=== PATIENT | female | born 1940 | race Caucasian/White ===

== ENCOUNTER 2017-02-28 08:23 | Day surgery (SDC) | payer BC ==
--- NOTE | 2017-02-20 12:06 | HP ---
Admitting History and Physical - Primary Care Physician PCP: Cuate Loza - Admission Chief Complaint: right breast cancer History of Present Illness: 76 yo female was noted to have a right breast mass at the right 9 oclock position on mammo and US. 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 Patient underwent an MRI which was c/w known cancer as well as an additional lesion .7 cm at 9 oclock. Focused US of this lesion was c/w a cyst. Patient is to undergo a right breast WE, snbx, lymphos and NL. History Source: Patient Limitations to Obtaining History: No Limitations - Past Medical History Cardiovascular: Yes: Hyperlipdemia Psych: Yes: Depression Endocrine: Yes: Hypothyroidism - Past Surgical History Past Surgical History: Yes: Appendectomy (at 29 yrs old), Cholecystectomy (at 29 yrs old) Additional Past Surgical History: Evacuation of subdural hematoma (2007) Home Medications - Allergies Allergies/Adverse Reactions: Allergies Allergy/AdvReac Type Severity Reaction Status Date / Time No Known Allergies Allergy Verified 02/20/17 12:10 - Home Medications Home Medications (free text): synthroid. lipitor. lexapro Family Disease History - Family Disease History Family Disease History: CA: Grandparent (maternal GF-prostate cancer), Mother ( breast and gastric cancer), Brother (prostate cancer) Review of Systems - Review of Systems Constitutional: reports: No Symptoms Cardiovascular: reports: No Symptoms Respiratory: reports: No Symptoms Physical Examination Constitutional: Yes: Well Nourished, Calm Breast(s): Yes: Other (Ptotic B-cup breasts with mild bruising noted at the right breast US core site. No suspiicious masses or adenopathy noted bilaterally. Mild thickening at bx site.) Problem List - Problems (1) Breast cancer, right Code(s): C50.911 - MALIGNANT NEOPLASM OF UNSP SITE OF RIGHT FEMALE BREAST Qualifiers: Breast location: overlapping sites of breast Patient sex: female Assessment/Plan Plan Right breast WE with NL, snbx, lympho possible andx
[2017-02-24 13:45] VITALS: BMI 27.0
[2017-02-28] MEDS ORDERED: LIDOCAINE HCL 1%, 10 MG/ML (20ML VIAL) ONE ×2 (12:52→14:42)
[2017-02-28] MEDS ORDERED: ISOSULFAN BLUE 10 MG/ML VIAL SQ ONE (12:52)
[2017-02-28] MEDS ORDERED: MIDAZOLAM HCL 2 MG/2 ML SINGLE DOSE VIAL ONE ×2 (13:26→14:00)
[2017-02-28] MEDS ORDERED: PROPOFOL 20 ML ONE (13:59)
[2017-02-28] MEDS ORDERED: PHENYLEPHRINE HCL 10 MG/1 ML SINGLE DOSE VIAL ONE (14:05)
[2017-02-28] MEDS ORDERED: ESMOLOL HCL 10 ML ONE (14:06)
[2017-02-28] MEDS ORDERED: LIDOCAINE HCL/PF 2% SDV 5ML VIAL ONE (14:06)
[2017-02-28] MEDS ORDERED: ceFAZolin SODIUM 1 GM VIAL ONE (14:08)
[2017-02-28] MEDS ORDERED: METOPROLOL TARTRATE 5 MG/5 ML VIAL ONE (14:12)
[2017-02-28] MEDS ORDERED: LIDOCAINE HCL 1%, 10 MG/ML (20ML VIAL) IJ ONE (14:36)
[2017-02-28] MEDS ORDERED: LIDOCAINE HCL 1%, 10 MG/ML (20ML VIAL) INF ONE (14:36)
[2017-02-28] MEDS ORDERED: DEXAMETHASONE SOD PHOSPHATE 4 MG/1 ML VIAL ONE (15:19)
[2017-02-28] MEDS ORDERED: KETOROLAC TROMETHAMINE 30 MG/1 ML VIAL ONE (15:19)
[2017-02-28] MEDS ORDERED: ONDANSETRON 4 MG/2 ML VIAL ONE (15:19)
[2017-02-28] MEDS ORDERED: ONDANSETRON 4 MG/2 ML VIAL IVPB PRN (15:30)
[2017-02-28] MEDS ORDERED: DEXTROSE 5%-0.45% SALINE 1,000 ML IV SCH (15:30)
[2017-02-28] MEDS ORDERED: KETOROLAC TROMETHAMINE 30 MG/1 ML VIAL IVPUSH PRN (15:30)
[2017-02-28] MEDS ORDERED: ONDANSETRON 4 MG/2 ML VIAL IVPUSH PRN (15:33)
[2017-02-28] MEDS ORDERED: oxyCODONE HCL 5 MG TABLET PO PRN (15:33)
[2017-02-28] MEDS ORDERED: LACTATED RINGERS SOLUTION 1,000 ML IV SCH (15:45)
--- NOTE | 2017-02-28 16:20 | OP ---
DATE OF OPERATION: 02/28/2017 PREOPERATIVE DIAGNOSIS: Right breast cancer, overlapping regions. POSTOPERATIVE DIAGNOSIS: Right breast cancer, overlapping regions. PROCEDURE: A right breast partial mastectomy with right axillary sentinel lymph node biopsy with partial tissue transfer closure 4 x 3 cm. PRIMARY SURGEON: Aziza Loza MD VERIFICATION LEAD: USHA Camarena ANESTHESIA: General anesthesia with local anesthesia. COMPLICATIONS: None. Briefly, the patient is a 76-year-old, G4, P3, postmenopausal white female of [place] descent with a family history with mother who has bilateral breast cancer in her 70s as well as gastric cancer. The patient was found to have a right breast lateral density seen on mammography from December 2016. An ultrasound confirmed an 8-mm density in the right breast 9 o'clock region. Ultrasound core biopsy performed on January 18, 2017, showed a poorly-differentiated invasive duct cancer which was ER/ID positive, HER2/jacquie negative by FISH. MRI did show a separate density in the right breast 9 o'clock region, but this turned out to be a cyst on ultrasound. She was advised of undergoing a right breast partial mastectomy with sentinel lymph node biopsy. The patient was brought in for the procedure on February 28, 2017, and underwent the needle localization and lymphoscintigraphy at [facility] and then was brought to the [facility]. In the holding area, site verification was made, and informed consent was obtained. DESCRIPTION OF PROCEDURE: She was brought into the operating room and laid on the OR table in the supine position. Venodynes were placed on the lower extremities. She received a gram of Ancef prior to incision. Both breasts were sterilely prepped and draped in the usual fashion. The patient was noted to have atrial fibrillation at the beginning of the case, which was fairly rapid, and she was given beta-blockers and controlled the heart rate. Decision was made to give her general anesthesia with a propofol drip as well as local anesthesia. Next, 3 mL of Lymphazurin blue were injected intradermally and peritumorally around the needle localization site, and massage was instituted. An incision was made just below the hair-bearing area of the right axilla, and dissection was undertaken, and the radioactive dye did not travel well. There was blue dye, however, seen coursing to 2 level I axillary lymph nodes which were removed and sent to Pathology in formalin. The second sentinel node did have a 10-second gamma count of 620, and there was a background count of 47 after removal of these 2 nodes. Hemostasis was achieved, and the axillary wound was closed using interrupted 2-0 plain suture, then interrupted 3-0 deep dermal Vicryl suture and a running 4-0 subcuticular Biosyn suture for the skin. Mastisol and Steri-Strips were placed over the axillary wound. At this point, the wide excision was undertaken around the needle localization site. A small ellipse of skin was removed with a wide excision. Dissection was undertaken around the needle localization, all the way down to the pectoralis major muscle. The specimen was removed with the wire in the middle of the specimen. The specimen was oriented with a long lateral/short superior suture, and specimen radiographs showed removal of the clip in question. Hemostasis was achieved. The specimen was sent in formalin down to Pathology. Separate margins were then taken on the superior, inferior, medial, lateral, and deep aspects with suture marked in the biopsy cavity side. Again, hemostasis was achieved. At this point, a 3 x 4 cm tissue transfer closure was accomplished by undermining the breast tissue. The breast tissue was then reapproximated using 2-0 plain suture. The skin was closed using interrupted 3-0 deep dermal Vicryl suture and a running 4-0 subcuticular Biosyn suture. Mastisol and Steri-Strips were applied over the wound and compressive dressing placed over this. The patient tolerated the procedure well, without difficulty, and was awake and alert at the end of the procedure. She was brought to the postanesthesia care unit in stable condition, will be discharged home the same day once discharge criteria are met. ESTIMATED BLOOD LOSS: About 20 mL. She was hemodynamically stable, though now had rate-controlled atrial fibrillation. She will be monitored closely at the end of the case to determine if she will need to be admitted postoperatively. Again, all sponge and needle counts were correct at the end of the case. AZIZA LOZA M.D. [id number]
[2017-02-28 16:21] LABS: ANION GAP 7 (8-16); CALCIUM 9.1 mg/dl (8.4-10.2); CO2 26 mmol/L (22-28); CREATININE 0.5 mg/dl (0.6-1.3); GLUCOSE,RANDOM 86 mg/dl (74-106); MAGNESIUM 1.8 mg/dL (1.8-2.4)
[2017-02-28 18:30] VITALS: TEMP 98
[2017-02-28 18:36] VITALS: BP 115/56; PULSE 64
--- NOTE | 2017-03-06 15:09 | PATH ---
Surgical Pathology Report Patient Name: CHANTEL SCHROEDER [facility]. Rec. #: [id number] /Age/Gender: 1940 (Age: 76) / F Account: [id number] Location: [facility] Taken: 02/28/2017 Received: 02/28/2017 Reported: 03/06/2017 Physicians: Cuate Loza M.D. Specimen(s) Received A: RIGHT SENTINEL LYMPH NODE #1 B: RIGHT SENTINEL LYMPH NODE #2 C: RIGHT BREAST WIDE EXCISION D: RIGHT BREAST SUPERIOR MARGIN E: RIGHT BREAST MEDIAL MARGIN F: RIGHT BREAST INFERIOR MARGIN G: RIGHT BREAST LATERAL MARGIN H: RIGHT BREAST DEEP MARGIN Clinical History Right breast poorly differentiated cancer: wide excision Final Diagnosis A. lymph node, right sentinel #1, excision: One lymph node, negative for metastatic carcinoma (0/1). B. lymph node, right sentinel #2, excision: One lymph node, negative for metastatic carcinoma (0/1). C. breast, right, wide excision: Invasive ductal carcinoma, poorly differentiated (tubule score: 3/3, nuclear grade: 3/3, mitotic score: 2/3; total Snyder score: 8/9), with prominent associated lymphocytic infiltrate(>60%). Invasive carcinoma measures 7 mm in greatest dimension, microscopically. Surgical margins are uninvolved by carcinoma; carcinoma is at 8 mm from the closest (deep) margin. see specimens D-h FOR final margins. Skin is present and is uninvolved by carcinoma. No lymphovascular invasion is identified. Pathologic stage (pTNM):pT1b pN0. See also invasive carcinoma case summary below. D. breast, right, superior margin, excision: BENIGN breast tissue. E. breast, right, medial margin, excision: Benign breast tissue. F. breast, right, inferior margin, excision: Benign breast tissue. G. breast, right, lateral margin, excision: Benign breast tissue. H. breast, right, deep margin, excision: Benign breast tissue and scant skeletal muscle. Comments Breast Invasive Carcinoma: Surgical Pathology Cancer Case Summary Based on AJCC/UICC TNM, 7th edition Procedure _X_ Excision with image-guided localization Lymph Node Sampling _X_ [place] lymph node(s) Specimen Laterality _X_ Right Tumor Size: Size of Largest Invasive Carcinoma: 7 mm Tumor Focality _X_ Single focus of invasive carcinoma Macroscopic and Microscopic Extent of Tumor Skin _X_ Invasive carcinoma does not invade into the dermis or epidermis Nipple _X_ Not applicable (excisions less than total mastectomy) Ductal Carcinoma In Situ (DCIS) _X_ No DCIS is present Histologic Type of Invasive Carcinoma : _X_ Invasive carcinoma of no special type (ductal, not otherwise specified) Histologic Grade: (Rober Histologic Score) Tubular Differentiation _X_ Score 3 Nuclear Pleomorphism _X_ Score 3 Mitotic Rate _X_ Score 2 Overall Grade _X_ Grade 3: scores of 8 or 9 (poorly differentiated) Margins _X_ Margins uninvolved by invasive carcinoma Distance from closest margin: 8 mm from deep margin in wide excision C. Final deep margin H is negative for carcinoma. Lymph-Vascular Invasion _X_ Not identified Lymph Nodes Total number of lymph nodes examined (sentinel and nonsentinel): 2 Number of sentinel lymph nodes examined: 2 Number of lymph nodes with macrometastases ( > 2 mm): 0 Number of lymph nodes with micrometastases (>0.2 mm to 2 mm and/or >200cells):0 Number of lymph nodes with isolated tumor cells (=0.2 mm and =200 cells): 0 Extranodal Extension _X_ Not applicable Pathologic Staging (pTNM) Primary Tumor (Invasive Carcinoma): pT1b Regional Lymph Nodes (pN): pN0 (sn) Biomarker Studies Results of ER, [place], Her2 & Ki67 studies will be reported separately in an addendum. Electronically Signed Felisha Fernández M.D. Addendum Reported: 03/09/2017 Addendum Diagnosis Results of ER, [place], Her2 (IHC) & Ki-67 studies performed on block C2 at [place], [place] ([id number]) are as follows: ER (clone [id number] mouse monoclonal antibody by [employer]): >90 % nuclear staining with strong intensity (Positive). WV (clone16 mouse monoclonal antibody by [employer]): 1-2 % nuclear staining with weak intensity (Weakly Positive). Her2 IHC (EP3 from [employer], formerly known as [id number], using [employer] Polymer Refine detection kit):1+ (Negative). Ki-67: ~60% (High proliferative index). Positive and negative controls (internal if applicable) show appropriate results. Formalin fixation time is within current ASCO/CAP recommendations for ER, W[place] and Her2 testing. Time to formalin fixation is not given but is presumed to be within one hour. Felisha Fernández M.D. Gross Description A. Received in formalin labeled "right sentinel lymph node #1," is a 0.5 cm in greatest dimension lymph node with attached fat. The specimen is submitted in toto in one cassette. B. Received in formalin labeled "right sentinel lymph node #2," is a 1.5 x 0.9 x 0.2 cm galeano, irregular lymph node with attached fat. The specimen is submitted in toto in one cassette. C. Received in formalin, labeled "right breast wide excision," is a 6.2 x 5.5 x 2.8 cm. galeano-yellow, irregular, portion of fibroadipose tissue. There is a needle localization wire separately received within the same container which appears to have detached from the specimen. There is a short suture marking the superior aspect and a long suture marking the lateral aspect, per the surgeon. The anterior surface displays a 2.5 x 0.5 cm galeano, elliptical, unremarkable portion of skin. The specimen is inked as follows: superior blue; inferior green; medial yellow; lateral red; deep black. The specimen is serially sectioned from superior to inferior. Sectioning reveals a 0.8 x 0.7 x 0.7 cm galeano, firm mass with a blackmon metallic biopsy clip. The mass is at 0.7 cm from the deep margin and 1.0 cm from the lateral margin. The remaining margins appear widely clear of the mass. [employer] sections are submitted in 6 cassettes as follows: 1-2-one full-face section of mass each (each displaying deep and lateral margins); 3-medial margin; 4-skin; 5-superior margin; 6-inferior margin. Time to formalin fixation: Not given Total formalin fixation time: Approximately 24 hours D. Received in formalin labeled "right breast superior margin," is a 2.3 x 1.8 x 0.6 cm irregular portion of fibroadipose tissue with a suture marking the biopsy cavity side, per the surgeon. The new margin is inked blue and the specimen is serially sectioned. The specimen is entirely submitted in 2 cassettes. E. Received in formalin labeled "right breast medial margin," is a 1.2 x 1.1 x 0.7 cm irregular portion of fibroadipose tissue with a suture marking the biopsy cavity side, per the surgeon. The new margin is inked blue and the specimen is serially sectioned. The specimen is entirely submitted in one cassette. F. Received in formalin labeled "right breast inferior margin," is a 2.5 x 1.7 x 0.5 cm irregular portion of fibroadipose tissue with a suture marking the biopsy cavity side, per the surgeon. The new margin is inked blue and the specimen is serially sectioned. The specimen is entirely submitted in 2 cassettes. G. Received in formalin labeled "right breast lateral margin," a 2.3 x 2.0 x 0.6 cm irregular portion of fibroadipose tissue with a suture marking the biopsy cavity side, per the surgeon. The new margin is inked blue and the specimen is serially sectioned. The specimen is entirely submitted in 2 cassettes. H. Received in formalin labeled "right breast deep margin," is a 2.2 x 2.0 x 0.7 cm irregular portion of fibroadipose tissue with a suture marking the biopsy cavity side, per the surgeon. The new margin is inked blue and the specimen is serially sectioned. The specimen is entirely submitted in 3 cassettes. 03/01/2017 [facility]03/01/2017
== END 2017-02-28 18:10 | disposition home or self-care (01) ==
LOC: FASU 08:23
PROVIDERS: ATTEND Surgery Surgical Oncology
PROC: 0HBT0ZZ Excision of Right Breast, Open Approach (ICD-10-PCS; principal; 2017-02-28 14:14)
PROC: 07B50ZX Excision of Right Axillary Lymphatic, Open Approach, Diagnostic (ICD-10-PCS; 2017-02-28 14:14)
PROC: 0JX60ZB Transfer Chest Subcutaneous Tissue and Fascia with Skin and Subcutaneous Tissue, Open Approach (ICD-10-PCS; 2017-02-28 14:14)
DX: C50.811 Malignant neoplasm of overlapping sites of right female breast (principal); Z80.3 Family history of malignant neoplasm of breast; I48.91 Unspecified atrial fibrillation; E78.5 Hyperlipidemia, unspecified; E03.9 Hypothyroidism, unspecified; F32.9 Major depressive disorder, single episode, unspecified
CPT/HCPCS: 19281; 36415; 78195-TC; 80048; 83735; 88307-TC; 88342-TC; 94760; A9541